=== PATIENT | male | born 1950 | race Caucasian/White ===

== ENCOUNTER 2019-09-08 07:59 | Day surgery (SDC) | payer MEDICARE, BC ==
[2019-09-08] MEDS ORDERED: Lactated Ringers 1,000 ML IV SCH (08:00)
[2019-09-08] MEDS ORDERED: Sodium Chloride 0.9% 10 ML Syringe FLUSH PRN (08:00)
[2019-09-08] MEDS ORDERED: EPINEPHrine 1:10,000 1 MG/10 ML Syringe ONE (08:39)
[2019-09-08] MEDS ORDERED: Midazolam 1 MG/ML 2 ML SDV ONE (09:09)
[2019-09-08] MEDS ORDERED: Propofol 200 MG/20 ML SDV ONE (09:09)
--- NOTE | 2019-09-08 10:12 | PCM.OPNOTE ---
- General Post-Op/Procedure Note Date of Surgery/Procedure: 09/08/19 Operative Procedure(s): Colonoscopy Findings: Normal colonoscopy Pre Op Diagnosis: Positive fit test Post-Op Diagnosis: Same Anesthesia Technique: MAC Complications: None Condition: Good Free Text/Narrative:: INFORMED CONSENT: Patient is here today for elective colonoscopy. All aspects of this procedure have been discussed with the patient. All possible complications also, including possibility of perforation, infection, pain, bleeding and unknown complications. In the event of perforation patient may need to have abdominal exploration, colon resection, colostomy and even was discussed. Anesthetic complications were handled by anesthesia department. The patient understands fully well. Patient did not have any further questions for me at the end of my interview. The patient wishes for me to proceed. PREOPERATIVE DIAGNOSIS/INDICATIONS: [Positive fit test negative colonoscopy] POSTOPERATIVE DIAGNOSIS: [] INSTRUMENT USED: Olympus videocolonoscope. ASA CLASSIFICATION: [2] ANESTHESIA: Continuous EKG, oximetry and intermittent blood pressure and respiratory monitoring were performed throughout the procedure. IV Versed and Fentanyl were administered. PROCEDURE PERFORMED: Colonoscopy POSITIONS OF PATIENT: Left lateral. RECTUM: Normal. SIGMOID COLON: Normal. DESCENDING COLON: Normal. SPLENIC FLEXURE: Normal. TRANSVERSE COLON: Normal. HEPATIC FLEXURE: Normal. ASCENDING COLON: Normal. CECUM: Normal. ILEOCECAL VALVE: Normal. BIOPSY: None. TOLERANCE: Excellent. COMPLICATIONS: None.
[2019-09-08] MEDS ORDERED: Bupivacaine 0.25% 30 ML SDV ONE (12:16)
== END 2019-09-08 11:05 | disposition home or self-care (01) ==
LOC: KA.SDS 07:59
PROVIDERS: ATTEND Family Medicine
DX: R19.5 Other fecal abnormalities (principal); I10 Essential (primary) hypertension; E55.9 Vitamin D deficiency, unspecified; E78.2 Mixed hyperlipidemia
CPT/HCPCS: 00812; J2250; J2704; J7120